=== PATIENT | female | born 1945 | race Caucasian/White ===

== ENCOUNTER → 2017-08-30 | Outpatient (CLI) | payer OTHER, BC | LOC: LABMALL 06:46 | DX: D48.7 Neoplasm of uncertain behavior of other specified sites (principal); D18.09 Hemangioma of other sites ==

== ENCOUNTER → 2018-09-16 | Outpatient (CLI) | payer OTHER, BC | LOC: MRI 08:19 | DX: D48.7 Neoplasm of uncertain behavior of other specified sites (principal) ==

== ENCOUNTER → 2021-02-21 | Outpatient (CLI) | payer OTHER, BC | LOC: MRI 12-11 08:14 | PROVIDERS: ATTEND Ophthalmology | DX: D31.62 Benign neoplasm of unspecified site of left orbit (principal) ==